=== PATIENT | male | born 1980 | race Caucasian/White ===

== ENCOUNTER 2024-09-27 14:27 | Inpatient (IN) | payer MEDICAID, OTHER ==
[~2024-09-27] VITALS: Ht 177.8 cm; Wt 93.5 kg
[2024-09-27] MEDS: SODIUM CHLORIDE 0.9% 1,000 ML IV ONE ×2 (18:00→19:30)
--- NOTE | 2024-09-27 18:46 | ED.PDOC ---
Psychiatric HPI Comments HPI: Poor Historian. 43-year-old male brought in by ambulance Patient is on Suboxone last intake was four days ago. Patient is on gabapentin Initial Vital Signs: Temp : BP: HR: RR: SpO2: Past Medcial History: Past Surgical History: REVIEW OF SYSTEMS: CONSTITUTIONAL: Denies acute: fever, diaphoresis, chills, generalized weakness. HEAD: Denies acute: headache, photophobia Eyes: Denies acute: Double vision, vision loss, eye pain, eye discharge. EARS: Denies acute: tinnitus, hearing loss, ear discharge, ear pain, THROAT: Denies acute: sore throat, swelling, difficulty swallowing , pain with swallowing, change in voice. NECK: Denies acute: neck pain, neck swelling, stiff neck. HEART: Denies acute : chest pain, palpitations, LUNGS: Denies acute: SOB, wheezing, cough, hemoptysis ABDOMEN: Denies acute: abdominal pain, Nausea, Vomiting, diarrhea, melena , hematemesis, hematochezia SKIN: Denies acute: rash, redness, lesions, itchiness. EXTREMITIES: Denies acute: calf pain, numbness, tingling, weakness, denies pain in extremity. Denies acute: Low back pain. Neuro: Denies acute: focal neurological deficit, motor or sensory focal neurological deficit, tremors, seizure like activity, confusion, dizziness, change in mental status, loss of bowel or bladder function, cauda equina like symptoms. : Denies acute: dysuria, hematuria, flank pain, increase in urinary frequency. PSYCH: Denies acute: hallucination, suicidal ideation, homicidal ideation. PHYSICAL EXAM: General: no acute distress, awake and alert. Head: normocephalic, atraumatic. Neck: supple, trachea is midline, no swelling. Throat: Normal phonation. Eyes:, no erythema, no purulent discharge, no proptosis, no icterus. Heart: regular rate, regular rhythm, no significant murmur appreciated. Lungs: no apparent respiratory distress, Able to speak in full sentences. No wheezing, no rhonchi, no crackles. No stridors Clear to auscultation bilaterally. Abdomen: non tender to palpation, non distended, soft, no guarding, no rebound, + bowel sounds. Neuro: Awake, Alert, oriented to name, self, situation, follows commands GCS=15. Speech is sporadic, Skin: no petechia, no purpura, no cyanosis, non-pale, not jaundice. Lower extremities: --no - Pitting edema no deformity, no focal swelling, no calf TTP. Makes eye contact. Unable to stay focused with the his answer, tangential moves all four extremities. Face: no apparent facial droop. Ambulating in the ED independently. Chief Complaint: Mental Health Time Seen by MD: 17:46 Primary Care Provider: UNKNOWN Information Source: Patient Mode of Arrival: EMS Past Medical History PAST MEDICAL HISTORY: Denies Surgical History: Denies all surgeries Family History Family History: Unknown Social History Smoker: Non-Smoker Alcohol: Occasionally Drugs: Other Lives In: Homeless Was a procedure done? Was a procedure done?: No Psych Differential Dx Psych. Differential Dx: Anxiety, Depression X-Ray, Labs, Meds, VS Vital Signs Date Time Temp Pulse Resp B/P (MAP) Pulse Ox O2 Delivery O2 Flow Rate FiO2 09/27/24 14:35 98.7 115 22 147/69 (95) 94 Lab Test 09/27/24 18:36 Range/Units White Blood Count 14.6 H 4.4-10.8 10^3/uL Red Blood Count 4.47 L 4.5-5.90 10^6/uL Hemoglobin 12.7 L 13.5-17.5 g/dL Hematocrit 38.0 L 41.0-53.0 % Mean Corpuscular Volume 85.1 80.0-100.0 fL Mean Corpuscular Hemoglobin 28.4 28.0-32.0 pg Mean Corpuscular Hemoglobin Concent 33.4 32.0-36.0 g/dL Red Cell Distribution Width 14.2 11.8-14.3 % Platelet Count 422 140-450 10^3/uL Mean Platelet Volume 6.7 L 6.9-10.8 fL Neutrophils (%) (Auto) 73.4 37.0-80.0 % Lymphocytes (%) (Auto) 13.4 10.0-50.0 % Monocytes (%) (Auto) 13.0 H 0.0-12.0 % Eosinophils (%) (Auto) 0.1 0.0-7.0 % Basophils (%) (Auto) 0.1 0.0-2.0 % Neutrophils # (Auto) 10.7 H 1.6-8.6 10 ^3/uL Lymphocytes # (Auto) 2.0 0.4-5.4 10 ^3/uL Monocytes # (Auto) 1.9 H 0-1.3 10 ^3/uL Eosinophils # (Auto) 0 0-0.8 10 ^3/uL Basophils # (Auto) 0 0-0.2 10 ^3/uL Nucleated Red Blood Cells 0.0 % Sodium Level 132 L 136-145 mmol/L Potassium Level 4.0 3.5-5.1 mmol/L Chloride Level 96 L 98-107 mmol/L Carbon Dioxide Level 22 20-31 mmol/L Anion Gap 14 5-15 Blood Urea Nitrogen 36 H 9-23 mg/dL Creatinine 1.17 0.700-1.30 mg/dL Glomerular Filtration Rate Calc 80 >90 mL/min BUN/Creatinine Ratio 30.8 H 10.0-20.0 Serum Glucose 67 L 74-106 mg/dL Lactic Acid Level 1.1 0.4-2.0 mmol/L Calcium Level 10.3 8.7-10.4 mg/dL Magnesium Level 2.4 1.6-2.6 mg/dL Total Bilirubin 1.8 H 0.2-1.0 mg/dL Aspartate Amino Transferase (AST) 88 H 13-40 U/L Alanine Aminotransferase (ALT) 37 7-40 U/L Alkaline Phosphatase 130 H 46-116 U/L Creatine Kinase > 1300 H 46-171 U/L Troponin I High Sensitivity 14 </=54 ng/L Total Protein 8.4 H 5.7-8.2 g/dL Albumin 5.1 H 3.2-4.8 g/dL Salicylates Level < 3.0 -30 mg/dL Acetaminophen Level < 2.0 L 10.0-20.0 UG/ML Plasma/Serum Blood Alcohol 5.1 <10 mg/dL [address] [address] Ph: [phone] DIAGNOSTIC IMAGING Diagnostic Imaging Report : [id number] Signed PATIENT: SAM SHIN ACCT: [id number] UNIT: [id number] : 1980 LOC: ER ROOM / BED: / AGE / SEX: 43 / M ADM STATUS: REG ER SERVICE [id number] ORDERING PHYSICIAN: BRYANT CARDOSO DO PROCEDURE(s): CXRP - CHEST PORTABLE REASON: mental health ORDER NUMBER(s): [id number], ACCESSION NUMBER(s): [id number] CHEST RADIOGRAPH Indication: mental health Technique: Single frontal view of the chest was obtained Comparison: None FINDINGS: Lines and Tubes: None Lungs: Clear Pleura: No effusion. No pneumothorax. Cardiomediastinal contours: Unremarkable Bones: Unremarkable IMPRESSION: 1. Clear lungs. ATED BY: FER GANDARA DO DICTATED DATE/TIME: 09/27/241934 SIGNED BY: FER GANDARA DO SIGNED DATE/TIME: 09/27/241934 CC: Time of 1ST Reevaluation: 18:26 Reevaluation 1ST: Unchanged Additional Information MDM LORAZEPAM 2MG, 2L NS Departure 1 Departure Time of Disposition: 19:24 Impression: Primary Impression: Rhabdomyolysis Additional Impression: Need for psychiatric clinical nurse specialist consultation Disposition: ADMITTED INPATIENT Admit to: [facility] Condition: Guarded Additional Instructions: [place] [address] Ph: [phone] DIAGNOSTIC IMAGING Diagnostic Imaging Report : [id number] Signed PATIENT: SAM SHIN ACCT: [id number] UNIT: [id number] : 1980 LOC: ER ROOM / BED: / AGE / SEX: 43 / M ADM STATUS: REG ER SERVICE 1746 ORDERING PHYSICIAN: BRYANT CARDOSO DO PROCEDURE(s): CXRP - CHEST PORTABLE REASON: mental health ORDER NUMBER(s): [id number], ACCESSION NUMBER(s): [id number] CHEST RADIOGRAPH Indication: mental health Technique: Single frontal view of the chest was obtained Comparison: None FINDINGS: Lines and Tubes: None Lungs: Clear Pleura: No effusion. No pneumothorax. Cardiomediastinal contours: Unremarkable Bones: Unremarkable IMPRESSION: 1. Clear lungs. ATED BY: FER GANDARA DO DICTATED DATE/TIME: 09/27/241934 SIGNED BY: FER GANDARA DO SIGNED DATE/TIME: 09/27/241934 CC: Discharged With: Self I personally scribed for BRYANT CARDOSO DO ([email or web address]) on 09/27/24 at 19:58. Electronically submitted by Constance Smith ([email or web address]). I personally scribed for JANAEBRYANT KELLEY DO ([email or web address]) on 09/27/24 at 20:47. Electronically submitted by Constance Smith ([email or web address]). I personally scribed for BRYANT CARDOSO DO ([email or web address]) on 09/27/24 at 20:52. Electronically submitted by Constance Smith ([email or web address]). I personally scribed for BRYANT CARDOSO DO ([email or web address]) on 09/27/24 at 21:33. Electronically submitted by Constance Smith ([email or web address]). I personally scribed for BRYANT CARDOSO DO ([email or web address]) on 09/27/24 at 21:33. Electronically submitted by Constance Smith ([email or web address]). BRYANT CARDOSO DO Sep 27, 2024 18:46
[2024-09-27 18:51] LABS: Basophils # (auto) 0 10 ^3/uL (0-0.2); Basophils % (auto) 0.1 % (0.0-2.0); Eosinophils # (auto) 0 10 ^3/uL (0-0.8); Eosinophils % (auto) 0.1 % (0.0-7.0); Hemoglobin 12.7 g/dL (13.5-17.5); Lymphocytes % (auto) 13.4 % (10.0-50.0); Mean Corpuscular Hemoglobin 28.4 pg (28.0-32.0); Mean Corpuscular Hgb Conc. 33.4 g/dL (32.0-36.0); Mean Corpuscular Volume 85.1 fL (80.0-100.0); Monocytes # (auto) 1.9 10 ^3/uL (0-1.3); Neutrophils # (auto) 10.7 10 ^3/uL (1.6-8.6); Neutrophils % (auto) 73.4 % (37.0-80.0); Platelet Count (auto) 422 10^3/uL (140-450); Red Blood Cells 4.47 10^6/uL (4.5-5.90); Red Cell Distribution Width 14.2 % (11.8-14.3); White Blood Cell 14.6 10^3/uL (4.4-10.8)
[2024-09-27 19:08] LABS: Alanine Aminotransferase 37 U/L (7-40); Anion Gap 14 (5-15); BUN/Creatinine Ratio 30.8 (10.0-20.0); Blood Alcohol 5.1 mg/dL (<10); Calcium 10.3 mg/dL (8.7-10.4); Carbon Dioxide 22 mmol/L (20-31); Magnesium 2.4 mg/dL (1.6-2.6)
[2024-09-27 19:09] LABS: Albumin 5.1 g/dL (3.2-4.8); Alkaline Phosphatase 130 U/L (46-116); Aspartate Aminotransferase 88 U/L (13-40); Bilirubin, Total 1.8 mg/dL (0.2-1.0); Blood Urea Nitrogen 36 mg/dL (9-23); Chloride 96 mmol/L (98-107); Creatine Kinase IFCC > 1300 U/L (46-171); Glucose 67 mg/dL (74-106); Sodium 132 mmol/L (136-145); Total Protein 8.4 g/dL (5.7-8.2)
[2024-09-27] MEDS: LORazepam 2MG/ML-1ML VIAL IV ONE (19:30)
--- NOTE | 2024-09-27 19:37 | DVH ---
CHEST RADIOGRAPH Indication: mental health Technique: Single frontal view of the chest was obtained Comparison: None FINDINGS: Lines and Tubes: None Lungs: Clear Pleura: No effusion. No pneumothorax. Cardiomediastinal contours: Unremarkable Bones: Unremarkable IMPRESSION: 1. Clear lungs.
[2024-09-27 19:48] LABS: Acetaminophen < 2.0 UG/ML (10.0-20.0); Salicylate < 3.0 mg/dL (-30)
--- NOTE | 2024-09-27 21:31 | DVHHPRES ---
History of Present Illness Resident Creating Document: YESSY DAMIAN RESIDENT History of Present Illness Patient is 43-year-old male with no known medical history came to hospital with seeking mental health given is anxious, feeling of killing himself and not eating and drinking enough for last 4-5 days. Patient is poor historian not able to provide proper medical history including past medical history, current medication, any previous psychiatric condition. In emergency department tele psych evaluation consultation has been ordered, IV fluid and Ativan has been ordered. Given abnormal lab findings included elevated creatinine, clinical signs of dehydration patient will be admitted to the hospital for further evaluation and management. Past Medical History Not able to obtain Past Surgical History: None Family History: None Past Social History Not able to obtain. Review of Systems Review of Systems Patient complaining of being agitated, anxious and complaining of killing himself. Constitutional: No: Fever, Chills, Sweats, Weakness, Malaise, Other Eyes: No: Pain, Vision change, Conjunctivae inflammation, Eyelid inflammation, Other, Redness ENT: No: Ear pain, Ear discharge, Nose pain, Nose discharge, Nose congestion, Mouth pain, Mouth swelling, Throat pain, Throat swelling, Other Respiratory: No: Cough, Dry, Shortness of breath, SOB with excertion, Wheezing, Hemoptysis, Pleuritic Pain, Sputum, Wheezing, Other Cardiovascular: No: Chest Pain, Palpitations, Orthopnea, Paroxysmal Noc. Dyspnea, Edema, Lt Headedness, Other Gastrointestinal: No: Nausea, Vomiting, Abdominal Pain, Diarrhea, Constipation, Melena, Hematochezia, Other Genitourinary: No Dysuria, No Frequency, No Incontinence, No Hematuria, No Retention, No Other Musculoskeletal: No: other, neck pain, shoulder pain, arm pain, back pain, hand pain, leg pain, foot pain Skin: No: Rash, Lesions, Jaundice, Bruising, Other Neurological: Change in speech Allergies: Coded Allergies: NO KNOWN ALLERGIES (Unverified , 09/27/24) Medications Current Medications Medications Dose Ordered Sig/Barbara Route Start Time Stop Time Status Last Admin Dose Admin Sodium Chloride 1,000 ml @ 100 mls/hr Q10H IV 09/27/24 21:30 UNV Exam Vital Signs Vital Signs Date Time Temp Pulse Resp B/P (MAP) Pulse Ox O2 Delivery O2 Flow Rate FiO2 09/27/24 14:35 98.7 115 22 147/69 (95) 94 General Appearance: Alert, Oriented X3 HEENT: PERRLA Respiratory: Clear to auscultation, Normal air movement Cardiovascular: Regular rate, Normal S1 Abdominal: Normal bowel sounds, Soft, No tenderness Extremities: No clubbing, No cyanosis, No edema Skin: No rashes, No breakdown, No significant lesion Neuro: Normal gait, Normal speech Psych/Mental Status: Other (Patient is anxious, speaking very fast) Labs/Xrays Labs Test 09/27/24 18:36 Range/Units White Blood Count 14.6 H 4.4-10.8 10^3/uL Red Blood Count 4.47 L 4.5-5.90 10^6/uL Hemoglobin 12.7 L 13.5-17.5 g/dL Hematocrit 38.0 L 41.0-53.0 % Mean Corpuscular Volume 85.1 80.0-100.0 fL Mean Corpuscular Hemoglobin 28.4 28.0-32.0 pg Mean Corpuscular Hemoglobin Concent 33.4 32.0-36.0 g/dL Red Cell Distribution Width 14.2 11.8-14.3 % Platelet Count 422 140-450 10^3/uL Mean Platelet Volume 6.7 L 6.9-10.8 fL Neutrophils (%) (Auto) 73.4 37.0-80.0 % Lymphocytes (%) (Auto) 13.4 10.0-50.0 % Monocytes (%) (Auto) 13.0 H 0.0-12.0 % Eosinophils (%) (Auto) 0.1 0.0-7.0 % Basophils (%) (Auto) 0.1 0.0-2.0 % Neutrophils # (Auto) 10.7 H 1.6-8.6 10 ^3/uL Lymphocytes # (Auto) 2.0 0.4-5.4 10 ^3/uL Monocytes # (Auto) 1.9 H 0-1.3 10 ^3/uL Eosinophils # (Auto) 0 0-0.8 10 ^3/uL Basophils # (Auto) 0 0-0.2 10 ^3/uL Nucleated Red Blood Cells 0.0 % Sodium Level 132 L 136-145 mmol/L Potassium Level 4.0 3.5-5.1 mmol/L Chloride Level 96 L 98-107 mmol/L Carbon Dioxide Level 22 20-31 mmol/L Anion Gap 14 5-15 Blood Urea Nitrogen 36 H 9-23 mg/dL Creatinine 1.17 0.700-1.30 mg/dL Glomerular Filtration Rate Calc 80 >90 mL/min BUN/Creatinine Ratio 30.8 H 10.0-20.0 Serum Glucose 67 L 74-106 mg/dL Lactic Acid Level 1.1 0.4-2.0 mmol/L Calcium Level 10.3 8.7-10.4 mg/dL Magnesium Level 2.4 1.6-2.6 mg/dL Total Bilirubin 1.8 H 0.2-1.0 mg/dL Aspartate Amino Transferase (AST) 88 H 13-40 U/L Alanine Aminotransferase (ALT) 37 7-40 U/L Alkaline Phosphatase 130 H 46-116 U/L Creatine Kinase > 1300 H 46-171 U/L Troponin I High Sensitivity 14 </=54 ng/L Total Protein 8.4 H 5.7-8.2 g/dL Albumin 5.1 H 3.2-4.8 g/dL Salicylates Level < 3.0 -30 mg/dL Acetaminophen Level < 2.0 L 10.0-20.0 UG/ML Plasma/Serum Blood Alcohol 5.1 <10 mg/dL Assessment/Plan Assessment/Plan Rhabdomyolysis Severe dehydration Suicidal ideation Likely depression, need psych evaluation ? Drug use Plan/recommendation -hydration with IV fluids -pending psych evaluation -repeat CBC and CMP given elevated creatinine kinase, likely due to severe dehydration. -IV lorazepam 1 mg q.6 p.r.n. for severe anxiety. Goals of care discussed greater than 22 minutes, full code. Plan discussed with Dr. Hernandez. Plan discussed with: Patient, Other (RN) My Orders Orders - YESSY DAMIAN Procedure Category Date Status Time Admit ADMIT 09/27/24 Transmitted 21:22 Sodium Chloride 0.9% PHA 09/27/24 Logged 21:30 Drug Screen LAB 09/27/24 Transmitted 21:26 Date of Service: Sep 27, 2024 Billing Provider: FIDEL HERNANDEZ MD Common Visit Codes: [id number] INP/OBS CARE (HIGH) YESSY DAMIAN RESIDENT Sep 27, 2024 21:31 FIDEL HERNANDEZ MD Sep 30, 2024 20:00
[2024-09-27 23:30] VITALS: BP 119/76; PULSE 71; RESP 18; TEMP 97.6; O2SAT 92
[2024-09-28] VITALS (7 sets, daily range): BP systolic 113–142; BP diastolic 54–81; PULSE 78–103; RESP 18–21; TEMP 97.4–98.5; O2SAT 94–98
[2024-09-28] MEDS: SODIUM CHLORIDE 0.9% 1,000 ML IV SCH ×2 (02:00→23:55)
[2024-09-28 04:26] LABS: Urine Bacteria None Seen /hpf (None Seen)
[2024-09-28 04:41] LABS: Urine Blood Negative /uL (Negative); Urine Clarity Clear (Clear); Urine Color Light-Yellow (Yellow); Urine Protein, UAD TRACE (Negative); Urine Specific Gravity 1.027 (1.001-1.035); Urine Squamous Epithelial Cell None Seen /hpf (<5); Urine Urobilinogen Normal (Negative); Urine WBC <1 /hpf (0 - 3)
[2024-09-28 04:46] LABS: Amphetamine Screen, Urine Neg (NEGATIVE); Barbiturate Scree,Urine Neg (NEGATIVE); Benzodiazephine Screen, Urine Neg (NEGATIVE); Cannabinoid Screen, Urine Pos (NEGATIVE); Cocaine Screen, Urine Neg (NEGATIVE); Opiate Scree,Urine Neg (NEGATIVE); Phencyclidine Screen, Urine Neg (NEGATIVE)
--- NOTE | 2024-09-28 08:02 | DVH ---
INDICATION: elevated bilirubin TECHNIQUE: Multiple real-time sonographic images of the abdomen were obtained. COMPARISON: None FINDINGS: The liver is homogenous in echogenicity. The liver measures 15.4 cm. No intrahepatic bilia ry ductal dilatation is noted. The gallbladder wall measures 0.2 cm and is unremarkable. No gallstones or sludge is seen. The com mon duct measures 0.6 cm and is unremarkable. No pericholecystic fluid is noted. Negative sonographi c christianson's sign. The right kidney measures 10.6 cm. No hydronephrosis. The pancreas is not well visualized due to obscuration from bowel gas. The visualized portions of the IVC and aorta are grossly unremarkable. IMPRESSION: 1. Dilated common bile duct without filling defects. The gallbladder is unremarkable. MRI/ MRCP may be obtained for further evaluation. 2. Normal echotexture of the liver. 3. No right hydronephrosis.
[2024-09-28] MEDS ORDERED: BUPR8MIS SL (08:44)
[2024-09-28 09:50] LABS: Basophils # (auto) 0 10 ^3/uL (0-0.2); Basophils % (auto) 0.1 % (0.0-2.0); Eosinophils # (auto) 0 10 ^3/uL (0-0.8); Eosinophils % (auto) 0.4 % (0.0-7.0); Hematocrit 35.8 % (41.0-53.0); Hemoglobin 12.2 g/dL (13.5-17.5); Lymphocytes # (auto) 1.3 10 ^3/uL (0.4-5.4); Lymphocytes % (auto) 16.2 % (10.0-50.0); Mean Corpuscular Hgb Conc. 34.2 g/dL (32.0-36.0); Mean Corpuscular Volume 84.7 fL (80.0-100.0); Monocytes # (auto) 1.1 10 ^3/uL (0-1.3); Monocytes % (auto) 13.4 % (0.0-12.0); Neutrophils # (auto) 5.7 10 ^3/uL (1.6-8.6); Neutrophils % (auto) 69.9 % (37.0-80.0); Nucleated Red Blood Cells % 0.2 %; Platelet Count (auto) 366 10^3/uL (140-450); Red Blood Cells 4.23 10^6/uL (4.5-5.90); Red Cell Distribution Width 13.7 % (11.8-14.3); White Blood Cell 8.1 10^3/uL (4.4-10.8)
[2024-09-28 10:06] LABS: Chloride 102 mmol/L (98-107); Sodium 137 mmol/L (136-145)
[2024-09-28 10:07] LABS: Anion Gap 9 (5-15); Calcium 9.5 mg/dL (8.7-10.4); Carbon Dioxide 26 mmol/L (20-31)
[2024-09-28 10:12] LABS: BUN/Creatinine Ratio 23.7 (10.0-20.0); Blood Urea Nitrogen 22 mg/dL (9-23)
[2024-09-28 10:21] LABS: Glucose 123 mg/dL (74-106)
[2024-09-28 10:57] LABS: Creatine Kinase IFCC 1527 U/L (46-171)
[2024-09-28] MEDS: NICOTINE 21MG/24 HR TOPICAL PATCH TD SCH (12:41)
[2024-09-28] MEDS ORDERED: SODIUM CHLORIDE 0.9% 1,000 ML IV SCH (14:00)
--- NOTE | 2024-09-28 14:15 | DVHINCON2 ---
Date of Service if different f: Sep 28, 2024 Consultation (JOSE) Progress: Somewhat better Labs Laboratory Tests Test 09/27/24 18:36 09/28/24 02:46 09/28/24 04:10 09/28/24 09:30 Lactic Acid Level 1.1 mmol/L (0.4-2.0) Magnesium Level 2.4 mg/dL (1.6-2.6) Total Bilirubin 1.8 mg/dL (0.2-1.0) Aspartate Amino Transf (AST/SGOT) 88 U/L (13-40) Alanine Aminotransferase (ALT/SGPT) 37 U/L (7-40) Alkaline Phosphatase 130 U/L (46-116) Troponin I High Sensitivity 14 ng/L (</=54) Total Protein 8.4 g/dL (5.7-8.2) Albumin 5.1 g/dL (3.2-4.8) Salicylates Level < 3.0 mg/dL (-30) Acetaminophen Level < 2.0 UG/ML (10.0-20.0) Plasma/Serum Blood Alcohol 5.1 mg/dL (<10) Ammonia < 10 umol/L (11-32) Urine Color Light-yellow (Yellow) Urine Clarity Clear (Clear) Urine pH 6.0 (5.0-9.0) Urine Specific Luna 1.027 (1.001-1.035) Urine Protein Trace (Negative) Urine Ketones 3+ (Negative) Urine Blood Negative /uL (Negative) Urine Nitrite Negative (Negative) Urine Bilirubin Negative (Negative) Urine Urobilinogen Normal mg/dL (Negative) Urine Leukocyte Esterase Negative /uL (Negative) Urine RBC 1 /hpf (0 - 3) Urine WBC <1 /hpf (0 - 3) Urine Squamous Epithelial Cells None seen /hpf (<5) Urine Bacteria None seen /hpf (None Seen) Urine Glucose Normal mg/dL (Normal) Urine Opiates Screen Neg (NEGATIVE) Urine Fentanyl Screen Neg (NEGATIVE) Urine Barbiturates Screen Neg (NEGATIVE) Urine Phencyclidine Screen Neg (NEGATIVE) Urine Amphetamines Screen Neg (NEGATIVE) Urine Benzodiazepines Screen Neg (NEGATIVE) Urine Cocaine Screen Neg (NEGATIVE) Urine Cannabinoids Screen Pos (NEGATIVE) White Blood Count 8.1 10^3/uL (4.4-10.8) Red Blood Count 4.23 10^6/uL (4.5-5.90) Hemoglobin 12.2 g/dL (13.5-17.5) Hematocrit 35.8 % (41.0-53.0) Mean Corpuscular Volume 84.7 fL (80.0-100.0) Mean Corpuscular Hemoglobin 29.0 pg (28.0-32.0) Mean Corpuscular Hemoglobin Concent 34.2 g/dL (32.0-36.0) Red Cell Distribution Width 13.7 % (11.8-14.3) Platelet Count 366 10^3/uL (140-450) Mean Platelet Volume 6.5 fL (6.9-10.8) Neutrophils (%) (Auto) 69.9 % (37.0-80.0) Lymphocytes (%) (Auto) 16.2 % (10.0-50.0) Monocytes (%) (Auto) 13.4 % (0.0-12.0) Eosinophils (%) (Auto) 0.4 % (0.0-7.0) Basophils (%) (Auto) 0.1 % (0.0-2.0) Neutrophils # (Auto) 5.7 10 ^3/uL (1.6-8.6) Lymphocytes # (Auto) 1.3 10 ^3/uL (0.4-5.4) Monocytes # (Auto) 1.1 10 ^3/uL (0-1.3) Eosinophils # (Auto) 0 10 ^3/uL (0-0.8) Basophils # (Auto) 0 10 ^3/uL (0-0.2) Nucleated Red Blood Cells 0.2 % Sodium Level 137 mmol/L (136-145) Potassium Level 4.0 mmol/L (3.5-5.1) Chloride Level 102 mmol/L (98-107) Carbon Dioxide Level 26 mmol/L (20-31) Anion Gap 9 (5-15) Blood Urea Nitrogen 22 mg/dL (9-23) Creatinine 0.93 mg/dL (0.700-1.30) Glomerular Filtration Rate Calc 105 mL/min (>90) BUN/Creatinine Ratio 23.7 (10.0-20.0) Serum Glucose 123 mg/dL (74-106) Calcium Level 9.5 mg/dL (8.7-10.4) Creatine Kinase 1527 U/L (46-171) Appetite: Good Side effects of medications: No Appearance: Stated age, Groomed Psychomotor activity: WNL (fidgety d/t ADHD combined type.) Behavioral: Cooperative Eye contact: Appropriate Speech: WNL, Rapid Affect: Appropriate Mood: Euthymic Thought processes: Linear/Goal-directed Thought content: WNL Suicidal ideations: Absent Homicidal ideations: Absent Orientation: Person, Place, Time, Situation Memory intact: Recent Intellect: Average Abstractability: WNL Concentration: Adequate Attention: Adequate Judgement: WNL Insight: Good Vitals Vital Signs Date Time Temp Pulse Resp B/P (MAP) Pulse Ox O2 Delivery O2 Flow Rate FiO2 09/28/24 12:30 98.1 100 19 142/81 (101) 96 98.1 09/28/24 08:00 Room Air* 0 21 Current medications Current Medications Medications Dose Ordered Sig/Barbara Route Start Time Stop Time Status Last Admin Dose Admin Sodium Chloride 1,000 ml @ 100 mls/hr Q10H IV 09/27/24 21:30 09/28/24 02:00 100 MLS/HR Nicotine 1 patch DAILY TD 09/28/24 12:30 09/28/24 12:41 1 PATCH Diagnosis: Opioid use disorder in sustained remission. ADHD combined type. Plan : Based on the current presentation and evaluation, the pt does not appear to be a danger to self or others and seems to have great insight and good judgment into his addiction, recovery. Pt works as a BHT in a rehab facility as well, helping other people in early recovery. Pt takes rietalin and suboxone at home, is stable on the doses for years and is famliar with where to follow up and whom to see, etc. Currently the pt denies SI, HI or AVH and admits to feeling bored, eager to leave and return to his work/life. The risk of harm to self or others in this case seems to be low and the pt can safely discharge to community with own f/u for psych and addiction services when medically cleared. History of Present Illness Reason for Consult : Pt made SI statements when presenting to the ED. HPI : Pt moved here 6 yrs ago and got about 1+ yr of rehab for drug use. Then the pt's narrative starts to unravel. Regarding how he came to the hospital, the pt says that there were people at the sober living house where he was living. They had kinds of drugs with them and pt felt very triggered to use drugs again. But he didn't. Pt only used some cannabis and nothing else. Pt felt very hot and people were commenting on how he didn't look well and that's why they called 911 to get him to the hospital. Pt says that he is not suicidal and doesn't recall making suicidal statements. Pt felt that he just had a bad day yesterday and felt overwhelmed. Past Psychiatric History : Pt takes Ritalin 36 mg for decades for ADHD. Pt did not admit to inpatient psychiatry only had [facility] treatment. Past Medical History : Denies. Social History : Lives in sober living. Works at [employer] at [employer]. Assessment/Diagnosis/Plan Reviewed: Labs, Medications, Other KARINA COFFMAN MD Sep 28, 2024 14:15
[2024-09-28] MEDS: ONDANSETRON HCL 4 MG/2 ML VIAL IV PRN (15:58)
[2024-09-28] MEDS: BUPRENORPHINE -NALOXONE 8-2mg SL TAB SL ONE (16:25)
--- NOTE | 2024-09-28 17:00 | DVHPNRES ---
Progress Note Date Seen: Sep 28, 2024 Resident Creating Document: ALONZO GERMAN RESIDENT Medical Necessity Reason Pt with a Central, PICC or Fol: No Subjective Review of Systems pt seen and examined at bedside, mentions of no suicideal ideation patient talks very tangential, with rapid speech Objective vital signs Vital Sign Date Time Temp Pulse Resp B/P (MAP) Pulse Ox O2 Delivery O2 Flow Rate FiO2 09/28/24 16:33 97.4 98 21 113/70 (84) 98 97.4 09/28/24 08:00 Room Air* 0 21 Total Intake and Output 09/27/24 09/27/24 09/28/24 15:00 23:00 07:00 Intake Total 0 ml Output Total 900 ml Balance -900 ml medications Current Medications Medications Dose Ordered Sig/Barbara Route Start Time Stop Time Status Last Admin Dose Admin Nicotine 1 patch DAILY TD 09/28/24 12:30 09/28/24 12:41 1 PATCH Sodium Chloride 1,000 ml @ 200 mls/hr Q5H IV 09/28/24 14:00 Ondansetron HCl 4 mg Q4HPRN PRN IV 09/28/24 15:30 09/28/24 15:58 4 MG Buprenorphine HCl 1 tab DAILY SL 09/29/24 10:00 Examination Examination General Appearance: Alert, Oriented X3, Cooperative, No acute distress HEENT: EOMI Respiratory: Clear to auscultation, Normal air movement Cardiovascular: Regular rate, Normal S1, Normal S2 Abdominal: Normal bowel sounds Extremities: No cyanosis, No edema, Normal pulses, No tenderness/swelling Skin: No rashes, No breakdown Neuro: Normal tone, no motor or sensory deficit laboratory and microbiology Laboratory Tests 09/28/24 09:30 Test 09/28/24 09:30 Range/Units Serum Glucose 123 H 74-106 mg/dL Labs and/or images reviewed: Labs reviewed by me, Image(s) reviewed by me Problem List/Assessment/Plan Problem List/Assessment/Plan Assessment/plan Rhabdomyolysis in the setting of possible dehydration versus possible illicit drug overdose YOBANY; most likely vasomotor nephropathy in the setting of rhabdomyolysis Leukocytosis; sepsis iv fluids Avoid nephrotoxic agents monitor BMP, CK UDS Suicidal ideation telepsych consultation Likely depression, rule out Bipolar disease telepsych consultation UDS Anxiety -IV lorazepam 1 mg q.6 p.r.n. for severe anxiety. Opioid use disorder continue home meds Tobacco use disorder; vapes nicotine Counseled cessation for 18 Goals of care discussed for 20 minutes, full code. banking services advisor consulted for home safety evaluation Plan discussed with Dr. Younger Plan discussed with: Patient, Other My Orders My Orders Orders - ALONZO GERMAN RESIDENT Procedure Category Date Status Time Nicotine 21mg/24hr PHA 09/28/24 In Process (Nicoderm 21mg/24hr) 12:30 Sodium Chloride 0.9% PHA 09/28/24 In Process 14:00 * Photo Finisher CONS 09/28/24 Transmitted Consult Ondansetron Hcl PHA 09/28/24 In Process (Zofran) 15:30 Electrocardigram EKG 09/28/24 Logged 15:31 Buprenorphine PHA 09/29/24 In Process Hcl-Naloxone Hcl 10:00 Addendum Addendum Addendum I was physically present for the lara portions of the service provided to patient by THE RESIDENT. I have reviewed the documentation, discussed the case with resident and agree with the resident's documentation except as noted. Also the patient's clinical case was discussed with the patient's nurse. This medical document was created using an electronic medical record system with computerized dictation system. Although this document has been carefully reviewed, there might still be some phonetic and typographical errors. These areas are purely typographical due to imperfections of the software programs, and do not reflect any compromise in the patient's medical care. Late signature. Date of Service: Sep 28, 2024 Billing Provider: TRISTON YOUNGER MD Common Visit Codes: [id number] INP/OBS CARE(HIGH) Secondary Visit Codes: 91785-[id number] CHNG SMOKING >10MIN (18 minutes), 42368- ADVANCED CARE PLAN 30 MINUTES (20 minutes) ALONZO GERMAN RESIDENT Sep 28, 2024 17:00 TRISTON YOUNGER MD Sep 29, 2024 18:46
[2024-09-29 01:00] VITALS: BP 138/73; PULSE 87; RESP 18; TEMP 98.2; O2SAT 95
[2024-09-29 05:00] VITALS: BP 136/78; PULSE 80; RESP 18; TEMP 98; O2SAT 95
[2024-09-29 05:41] LABS: Basophils # (auto) 0 10 ^3/uL (0-0.2); Basophils % (auto) 0.3 % (0.0-2.0); Eosinophils # (auto) 0.1 10 ^3/uL (0-0.8); Eosinophils % (auto) 1.6 % (0.0-7.0); Hematocrit 36.5 % (41.0-53.0); Hemoglobin 12.2 g/dL (13.5-17.5); Lymphocytes # (auto) 1.3 10 ^3/uL (0.4-5.4); Lymphocytes % (auto) 22.7 % (10.0-50.0); Mean Corpuscular Hgb Conc. 33.6 g/dL (32.0-36.0); Mean Corpuscular Volume 86.4 fL (80.0-100.0); Monocytes # (auto) 0.8 10 ^3/uL (0-1.3); Monocytes % (auto) 13.6 % (0.0-12.0); Neutrophils # (auto) 3.6 10 ^3/uL (1.6-8.6); Neutrophils % (auto) 61.8 % (37.0-80.0); Platelet Count (auto) 323 10^3/uL (140-450); Red Blood Cells 4.22 10^6/uL (4.5-5.90); Red Cell Distribution Width 13.8 % (11.8-14.3); White Blood Cell 5.8 10^3/uL (4.4-10.8)
[2024-09-29 06:03] LABS: Calcium 9.3 mg/dL (8.7-10.4); Chloride 104 mmol/L (98-107); Potassium 3.7 mmol/L (3.5-5.1); Sodium 139 mmol/L (136-145)
[2024-09-29 06:04] LABS: Anion Gap 6 (5-15); Carbon Dioxide 29 mmol/L (20-31)
[2024-09-29 06:09] LABS: BUN/Creatinine Ratio 16.7 (10.0-20.0); Blood Urea Nitrogen 12 mg/dL (9-23); Magnesium 2.1 mg/dL (1.6-2.6)
[2024-09-29 06:24] LABS: Creatine Kinase IFCC 717 U/L (46-171); Glucose 107 mg/dL (74-106)
[2024-09-29 08:00] VITALS: PULSE 99; RESP 18; O2SAT 94
[2024-09-29 08:30] VITALS: BP 139/83; PULSE 107; RESP 16; TEMP 97.8; O2SAT 94
--- NOTE | 2024-09-29 08:35 | ECG ---
[facility] Test Date: 2024-09-28 Test Time: 15:45:24 Pat Name: SAM SHIN Department: Room: 0271 Gender: M Integration Consultant: OC : 1980 Requested By: ALONZO GERMAN Order Number: [id number] Reading MD: Measurements Intervals [place] Rate: 82 P: 35 WI: 174 QRS: 12 QRSD: 110 T: 26 QT: 382 QTc: 446 Interpretive Statements Sinus rhythm Artifact in lead(s) I,II,III,aVR,aVL,aVF,V1,V2,V3,V4,V5,V6 Please click the below link to view image of tracing.
[2024-09-29] MEDS ORDERED: NICOTINE 21MG/24 HR TOPICAL PATCH TD SCH (10:00)
[2024-09-29] MEDS ORDERED: BUPRENORPHINE -NALOXONE 8-2mg SL TAB SL SCH (10:00)
--- NOTE | 2024-09-29 11:10 | DVHDSRES ---
Discharge Summary Date of Admission Resident Creating Document: AMARILIS COFFMAN RESIDENT Sep 27, 2024 at 21:22 Date of Discharge: Sep 29, 2024 Admitting Diagnosis Suicidal thoughts with decreased oral intake Labs/Diagnostic Data: Laboratory Results Test 09/29/24 04:57 09/28/24 04:10 09/28/24 02:46 09/27/24 18:36 White Blood Count 5.8 10^3/uL (4.4-10.8) Red Blood Count 4.22 10^6/uL (4.5-5.90) Hemoglobin 12.2 g/dL (13.5-17.5) Hematocrit 36.5 % (41.0-53.0) Mean Corpuscular Volume 86.4 fL (80.0-100.0) Mean Corpuscular Hemoglobin 29.0 pg (28.0-32.0) Mean Corpuscular Hemoglobin Concent 33.6 g/dL (32.0-36.0) Red Cell Distribution Width 13.8 % (11.8-14.3) Platelet Count 323 10^3/uL (140-450) Mean Platelet Volume 6.7 fL (6.9-10.8) Neutrophils (%) (Auto) 61.8 % (37.0-80.0) Lymphocytes (%) (Auto) 22.7 % (10.0-50.0) Monocytes (%) (Auto) 13.6 % (0.0-12.0) Eosinophils (%) (Auto) 1.6 % (0.0-7.0) Basophils (%) (Auto) 0.3 % (0.0-2.0) Neutrophils # (Auto) 3.6 10 ^3/uL (1.6-8.6) Lymphocytes # (Auto) 1.3 10 ^3/uL (0.4-5.4) Monocytes # (Auto) 0.8 10 ^3/uL (0-1.3) Eosinophils # (Auto) 0.1 10 ^3/uL (0-0.8) Basophils # (Auto) 0 10 ^3/uL (0-0.2) Nucleated Red Blood Cells 0.0 % Sodium Level 139 mmol/L (136-145) Potassium Level 3.7 mmol/L (3.5-5.1) Chloride Level 104 mmol/L (98-107) Carbon Dioxide Level 29 mmol/L (20-31) Anion Gap 6 (5-15) Blood Urea Nitrogen 12 mg/dL (9-23) Creatinine 0.72 mg/dL (0.700-1.30) Glomerular Filtration Rate Calc 117 mL/min (>90) BUN/Creatinine Ratio 16.7 (10.0-20.0) Serum Glucose 107 mg/dL (74-106) Calcium Level 9.3 mg/dL (8.7-10.4) Magnesium Level 2.1 mg/dL (1.6-2.6) Creatine Kinase 717 U/L (46-171) Urine Color Light-yellow (Yellow) Urine Clarity Clear (Clear) Urine pH 6.0 (5.0-9.0) Urine Specific [place] 1.027 (1.001-1.035) Urine Protein Trace (Negative) Urine Ketones 3+ (Negative) Urine Blood Negative /uL (Negative) Urine Nitrite Negative (Negative) Urine Bilirubin Negative (Negative) Urine Urobilinogen Normal mg/dL (Negative) Urine Leukocyte Esterase Negative /uL (Negative) Urine RBC 1 /hpf (0 - 3) Urine WBC <1 /hpf (0 - 3) Urine Squamous Epithelial Cells None seen /hpf (<5) Urine Bacteria None seen /hpf (None Seen) Urine Glucose Normal mg/dL (Normal) Urine Opiates Screen Neg (NEGATIVE) Urine Fentanyl Screen Neg (NEGATIVE) Urine Barbiturates Screen Neg (NEGATIVE) Urine Phencyclidine Screen Neg (NEGATIVE) Urine Amphetamines Screen Neg (NEGATIVE) Urine Benzodiazepines Screen Neg (NEGATIVE) Urine Cocaine Screen Neg (NEGATIVE) Urine Cannabinoids Screen Pos (NEGATIVE) Ammonia < 10 umol/L (11-32) Lactic Acid Level 1.1 mmol/L (0.4-2.0) Total Bilirubin 1.8 mg/dL (0.2-1.0) Aspartate Amino Transferase (AST) 88 U/L (13-40) Alanine Aminotransferase (ALT) 37 U/L (7-40) Alkaline Phosphatase 130 U/L (46-116) Troponin I High Sensitivity 14 ng/L (</=54) Total Protein 8.4 g/dL (5.7-8.2) Albumin 5.1 g/dL (3.2-4.8) Salicylates Level < 3.0 mg/dL (-30) Acetaminophen Level < 2.0 UG/ML (10.0-20.0) Plasma/Serum Blood Alcohol 5.1 mg/dL (<10) Other Laboratory Tests 09/29/24 04:57 Brief Hx & Hospital Course: Patient is 43-year-old male with no known medical history came to hospital with seeking mental health support, along with anxiety, thoughts of killing himself and not eating and drinking enough for last 4-5 days. Patient is poor historian not able to provide proper medical history including past medical history, current medication, any previous psychiatric condition. In emergency department tele psych evaluation consultation was ordered, IV fluid and Ativan has been ordered. Given abnormal lab findings included elevated creatinine, clinical signs of dehydration patient was admitted to the hospital for further evaluation and management. Hospital course: Psychiatric evaluation was ordered for the patient according to which the patient did not appear to be danger to self or others and seemed to have good insight and good judgment into his addiction, recovery. Patient was noted to have a creatinine kinase >1300, 1527 and was subsequently started on IV fluid 200 cc/hour. For anxiety, patient was continued on IV lorazepam 1 mg q.6 hours as needed for severe anxiety. customer technical services manager were also consulted for home safety evaluation, however, patient eloped before further evaluation and management could be completed. The patient eloped so physical exam was not done. Discussed with Dr. Younger. Condition at Discharge: Undetermined (Eloped) Final Diagnosis/Problems List Rhabdomyolysis Hyponatremia, improved Transaminitis possible liver disease? Depression, could not rule out bipolar disease Suicidal ideation Opioid use disorder Anxiety Discharge Disposition: Eloped Discharge Instruct/Medications Diet: See Comment Diet comment: Eloped Activity: See Comment Activity comment: Eloped Follow Up/Referral: Eloped Medications: Eloped Discharge Statement: Patient eloped. ASSESSMENT ASSESSMENT Assessment Addendum Addendum Addendum I was physically present for the lara portions of the service provided to patient by THE RESIDENT. I have reviewed the documentation, discussed the case with resident and agree with the resident's documentation except as noted. Also the patient's clinical case was discussed with the patient's nurse. This medical document was created using an electronic medical record system with computerized dictation system. Although this document has been carefully reviewed, there might still be some phonetic and typographical errors. These areas are purely typographical due to imperfections of the software programs, and do not reflect any compromise in the patient's medical care. Late signature. Date of Service: Sep 29, 2024 Billing Provider: TRISTON YOUNGER MD Common Visit Codes: 53981-TCI/OBS DISCH DAY >30min AMARILIS COFFMAN RESIDENT Sep 29, 2024 11:10 TRISTON YOUNGER MD Sep 29, 2024 18:51
[2024-09-30] MEDS ORDERED: BUPR8MIS SL (13:12)
== END 2024-09-29 09:15 | disposition left against medical advice (07) | DRG 351 ==
LOC: ER 14:27 → EDBD 14:27 → OVERFLOW 21:22 → WEST WING 23:22
PROVIDERS: ADMIT Student in an Organized Health Care Education/Training Program; ATTEND Emergency Medicine
DX: M62.82 Rhabdomyolysis (principal); R45.851 Suicidal ideations; E87.1 Hypo-osmolality and hyponatremia; E86.0 Dehydration; Z53.29 Procedure and treatment not carried out because of patient's decision for other reasons; F11.11 Opioid abuse, in remission; F90.2 Attention-deficit hyperactivity disorder, combined type; R74.01 Elevation of levels of liver transaminase levels; K76.9 Liver disease, unspecified; F31.9 Bipolar disorder, unspecified; F41.9 Anxiety disorder, unspecified; Z59.00 Homelessness unspecified; Z79.899 Other long term (current) drug therapy
CPT/HCPCS: 36415; 71045; 76705; 80048; 80053; 80307; 80320; 80329; 81001; 82140; 82550; 83605; 83735; 84484; 85025; 93005; G0378; J2405

== ENCOUNTER 2024-09-29 10:44 | Inpatient (IN) | payer MEDICAID ==
[~2024-09-29] VITALS: Ht 185.4 cm; Wt 93.1 kg
[~2024-09-29 10:44] MED LIST: BUPR8MIS SL
--- NOTE | 2024-09-29 11:12 | ED.PDOC ---
SOB-HPI HPI Comments 43 y.o male presents to the ED via EMS for a chief complaint of SOB associated with a productive cough that started 3-4 days ago. Patient was seen at this ED yesterday, was discharged a couple hours ago with unremarkable examination but states symptoms have no improved. EMS reports patient was tachycardiac art 140- 160, was given IV fluid which brought heart rate down to 109. Patient denies any chest pain, nausea, vomiting, fever chills, or phlegm sputum. Patient reports the use of tobacco via Vaping device and marijuana. Chief Complaint: Shortness of Breath Time Seen by MD: 10:58 Primary Care Provider: UNKNOWN Reviewed notes: Nurses Notes, Bulk Station Agent Notes, Medications, Allergies Information Source: Patient, Emergency Med Personnel Mode of Arrival: EMS Severity: Moderate Timing: Days Duration: Since onset Context: At Rest PE Risk Factors: None Prehospital treatment: 12 Lead EKG, Cnc Machine Operator, IVF Associated Signs and Symptoms: Cough If cough with SOB: Productive Past Medical History PAST MEDICAL HISTORY: Depression, Seizures Past Medical History (Other): neuropathy Surgical History (Other): back Family History Family History: Unknown Social History Smoker: Other (Vape ) Alcohol: Occasionally Drugs: Marijuana Lives In: Homeless Constitutional: denies: chills, diaphoresis, fatigue, fever, malaise, sweats, weakness, others EENTM: denies: blurred vision, double vision, ear bleeding, ear discharge, ear drainage, ear pain, ear ringing, eye pain, eye redness, hearing loss, mouth pain, mouth swelling, nasal discharge, nose bleeding, nose congestion, nose pain, photophobia, tearing, throat pain, throat swelling, voice changes, others Respiratory: reports: cough, SOB at rest, shortness of breath, SOB with excertion; denies: hemoptysis, orthopnea, stridor, wheezing, others Cardiovascular: denies: chest pain, dizzy spells, diaphoresis, Dyspnea on exertion, edema, irregular heart beat, left arm pain, lightheadedness, palpitations, PND, syncope, others Gastrointestinal: denies: abdomen distended, abdominal pain, blood streaked bowels, constipated, diarrhea, dysphagia, difficulty swallowing, hematemesis, melena, nausea, poor appetite, poor fluid intake, rectal bleeding, rectal pain, vomiting, others Genitourinary: denies: burning, dysuria, flank pain, frequency, hematuria, incontinence, penile discharge, penile sore, pain, testicle pain, testicle swelling, urgency, others Neurological: denies: dizziness, fainting, headache, left sided numbness, left sided weakness, numbness, paresthesia, pre-existing deficit, right sided numbness, right sided weakness, seizure, speech problems, tingling, tremors, weakness, others Musculoskeletal: denies: back pain, gout, joint pain, joint swelling, muscle pain, muscle stiffness, neck pain, others Integumetry: denies: bruises, change in color, change in hair/nails, dryness, laceration, lesions, lumps, rash, wounds, others Allergic/Immunocompromised: denies: Difficulty Healing, Frequent Infections, Hives, Itching, others Hematologic/Lymphatic: denies: anemia, blood clots, easy bleeding, easy bruising, swollen glands, others Endocrine: denies: excessive hunger, excessive sweating, excessive thirst, excessive urination, flushing, intolerance to cold, intolerance to heat, unexplained weight gain, unexplained weight loss, others Psychiatric: denies: anxiety, bipolar disorder, depression, hopeless, panic disorder, schizophrenia, sleepless, suicidal, others All Other Systems: Reviewed and Negative Physical Exam General Appearance: Moderate Distress HEENT: Normal ENT Inspection, Pharynx Normal, TMs Normal Neck: Full Range of Motion, Non-Tender, Normal, Normal Inspection Respiratory: Accessory Muscle Use, Chest Non-Tender, Decreased Breath Sounds, Respiratory Distress, Rhonchi, Wheezing Cardiovascular: No Edema, No JVD, No Murmur, No Gallop, Tachycardia Breast Exam: Deferred Gastrointestinal: No Organomegaly, Non Tender, No Pulsatile Mass, Normal Bowel Sounds, Soft Genitalia: Deferred Pelvic: Deferred Rectal: Deferred Extremities: No calf tenderness, Normal capillary refill, Normal inspection, Normal range of motion, Non-tender, No pedal edema Musculoskeletal : Apperance: Normal Neurologic: Alert, fire inspector II-XII nml as Tested, No Motor Deficits, Normal Affect, Normal Mood, No Sensory Deficits Cerebellar Function: Normal Reflexes: Normal Skin: Dry, Normal Color, Warm Lymphatic: No Adenopathy Was a procedure done? Was a procedure done?: No Differential Dx Differential Diagnosis: Asthma, Bronchitis, COPD, Hyperventilation, Pneumonia, Respiratory Distress, Pharyngitis, URI X-Ray, Labs, Meds, VS Vital Signs Date Time Temp Pulse Resp B/P (MAP) Pulse Ox O2 Delivery O2 Flow Rate FiO2 09/29/24 12:01 24 99 Room Air* 0 21 09/29/24 11:39 102 16 96 Room Air* 0 21 09/29/24 11:32 98.4 102 22 153/90 (111) 96 98.4 09/29/24 11:00 98.3 102 18 142/96 (111) 97 Lab Test 09/29/24 11:24 Range/Units White Blood Count 16.8 #H 4.4-10.8 10^3/uL Red Blood Count 4.21 L 4.5-5.90 10^6/uL Hemoglobin 11.7 L 13.5-17.5 g/dL Hematocrit 35.7 L 41.0-53.0 % Mean Corpuscular Volume 85.0 80.0-100.0 fL Mean Corpuscular Hemoglobin 27.8 L 28.0-32.0 pg Mean Corpuscular Hemoglobin Concent 32.7 32.0-36.0 g/dL Red Cell Distribution Width 13.9 11.8-14.3 % Platelet Count 399 140-450 10^3/uL Mean Platelet Volume 6.5 L 6.9-10.8 fL Neutrophils (%) (Auto) 88.6 H 37.0-80.0 % Lymphocytes (%) (Auto) 4.5 L 10.0-50.0 % Monocytes (%) (Auto) 6.7 0.0-12.0 % Eosinophils (%) (Auto) 0.0 0.0-7.0 % Basophils (%) (Auto) 0.2 0.0-2.0 % Neutrophils # (Auto) 14.8 H 1.6-8.6 10 ^3/uL Lymphocytes # (Auto) 0.8 0.4-5.4 10 ^3/uL Monocytes # (Auto) 1.1 0-1.3 10 ^3/uL Eosinophils # (Auto) 0 0-0.8 10 ^3/uL Basophils # (Auto) 0 0-0.2 10 ^3/uL Nucleated Red Blood Cells 0.0 % Sodium Level 135 L 136-145 mmol/L Potassium Level 3.8 3.5-5.1 mmol/L Chloride Level 101 98-107 mmol/L Carbon Dioxide Level 26 20-31 mmol/L Anion Gap 8 5-15 Blood Urea Nitrogen 17 9-23 mg/dL Creatinine 0.92 0.700-1.30 mg/dL Glomerular Filtration Rate Calc 107 >90 mL/min BUN/Creatinine Ratio 18.5 10.0-20.0 Serum Glucose 76 74-106 mg/dL Calcium Level 9.3 8.7-10.4 mg/dL B-Type Natriuretic Peptide 75.98 0-100 pg/mL Current Medications Medications (Trade) Dose Ordered Sig/Barbara Route Start Time Stop Time Status Last Admin Methylprednisolone Sodium Succinate (Solu Medrol) 125 mg ONCE ONCE IV 09/29/24 11:15 09/29/24 11:16 DC 09/29/24 11:35 Ipratropium [place] (Atrovent Medneb) 1 mg ONCE ONCE HHN 09/29/24 11:15 09/29/24 11:16 DC 09/29/24 12:00 Albuterol (Ventolin Medneb) 20 mg ONCE ONCE N 09/29/24 11:15 09/29/24 11:16 DC 09/29/24 12:00 The patient's CBC shows an elevated white blood cell count of 16.8 The rest of the CBC is within normal limits of the chemistry panel is within normal limits The patient was given breathing treatment of albuterol and Atrovent The patient was also given Solu-Medrol 125 mg IV push At this time, the patient is being admitted to the hospitalist The chest x-ray is negative At this time the patient has be admitted with a diagnosis of acute respiratory failure The patient understands and agrees with the management. Images Reviewed?: Images reviewed and evaluated by me Time of 1ST Reevaluation: 11:12 Reevaluation 1ST: Unchanged Patient Education/Counseling: Diagnosis, Treatment, Prognosis Family Education/Counseling: No Family Present Departure 1 Departure Time of Disposition: 13:58 Impression: Primary Impression: Acute respiratory failure Qualified Codes: J96.00 - Acute respiratory failure, unspecified whether with hypoxia or hypercapnia Disposition: ADMITTED INPATIENT Admit to: [facility] Condition: Fair Critical Care Note Critical Care Time?: No Stability Stability form required: Yes Unstable for transfer: Telemetry monitoring (Telemetry monitoring required), ED Physician Assesment (Clinical assesment) I personally scribed for ZAINAB CANTU MD ([email or web address]) on 09/29/24 at 11:12. Electronically submitted by Kusum Bowers ([email or web address]). ZAINAB CANTU MD Sep 29, 2024 11:12
[2024-09-29 11:32] LABS: Basophils # (auto) 0 10 ^3/uL (0-0.2); Basophils % (auto) 0.2 % (0.0-2.0); Eosinophils # (auto) 0 10 ^3/uL (0-0.8); Hematocrit 35.7 % (41.0-53.0); Hemoglobin 11.7 g/dL (13.5-17.5); Lymphocytes # (auto) 0.8 10 ^3/uL (0.4-5.4); Lymphocytes % (auto) 4.5 % (10.0-50.0); Mean Corpuscular Hemoglobin 27.8 pg (28.0-32.0); Mean Corpuscular Hgb Conc. 32.7 g/dL (32.0-36.0); Monocytes # (auto) 1.1 10 ^3/uL (0-1.3); Monocytes % (auto) 6.7 % (0.0-12.0); Neutrophils # (auto) 14.8 10 ^3/uL (1.6-8.6); Neutrophils % (auto) 88.6 % (37.0-80.0); Platelet Count (auto) 399 10^3/uL (140-450); Red Blood Cells 4.21 10^6/uL (4.5-5.90); Red Cell Distribution Width 13.9 % (11.8-14.3); White Blood Cell 16.8 10^3/uL (4.4-10.8)
[2024-09-29] MEDS: methylPREDNISolone SOD SUCC 125 MG/2 ML VL IV ONE (11:35)
[2024-09-29 11:39] VITALS: PULSE 102; RESP 16; O2SAT 96
[2024-09-29 11:56] LABS: Chloride 101 mmol/L (98-107); Potassium 3.8 mmol/L (3.5-5.1)
[2024-09-29 11:57] LABS: Anion Gap 8 (5-15); Carbon Dioxide 26 mmol/L (20-31)
[2024-09-29 11:58] LABS: Calcium 9.3 mg/dL (8.7-10.4)
[2024-09-29] MEDS: ALBUTEROL SULF 2.5 MG/0.5ML(0.5%) NEB SOLN HHN ONE (12:00)
[2024-09-29] MEDS: IPRATROPIUM BROM 0.5 MG/2.5ML INH SOL HHN ONE (12:00)
[2024-09-29 12:01] LABS: Sodium 135 mmol/L (136-145)
[2024-09-29 12:02] LABS: BUN/Creatinine Ratio 18.5 (10.0-20.0); Blood Urea Nitrogen 17 mg/dL (9-23); Glucose 76 mg/dL (74-106)
--- NOTE | 2024-09-29 12:17 | DVH ---
CHEST RADIOGRAPH Indication: sob Technique: Single frontal view of the chest was obtained COMPARISON: XY CHEST PORTABLE on DOS: 09/27/24 FINDINGS: Lines and Tubes: None Lungs: Clear Pleura: No effusion. No pneumothorax. Cardiomediastinal contours: Unremarkable Bones: Unremarkable IMPRESSION: 1. No acute disease.
[2024-09-29 23:30] VITALS: PULSE 102; RESP 20; O2SAT 96
--- NOTE | 2024-09-29 23:30 | DVHHPRES ---
History of Present Illness Resident Creating Document: YESSY DAMIAN RESIDENT History of Present Illness Patient is 43-year-old male with no known medical history came to the hospital after eloped on 09/29/2024 with a chief complaint of worsening cough, shortness of breath and mild fever. As per patient he went home from hospital, started having sudden onset of cough, shortness of breath and he was not able to breathe by himself. That is why patient came to the hospital. Shortness of breath is sudden onset, not associated with chest pain, no sputum production, constant dry cough, associated with flu-like symptoms including runny nose, sore throat and fever. Cough is dry, constant, not associated with sputum production. Patient denied any other symptoms including chest pain, sputum production, abdominal pain, motor weakness, sensory deficits, any other symptoms. At the time of evaluation, patient was in respiratory distress, laboratory findings evident with elevated white cell count, patient will be admitted to hospital for further evaluation and management. Past Medical History Opiate use disorder Anxiety Past Surgical History: None Family History: None Past Social History As per patient he smokes marijuana. Home medication:Pt takes Ritalin 36 mg for decades for ADHD. Patient takes Suboxone for opiate use disorder. Review of Systems Review of Systems Patient complaining of runny nose, sore throat, fever, cough, shortness of breath. Allergies: Coded Allergies: NO KNOWN ALLERGIES (Unverified , 09/27/24) Medications Current Medications Medications Dose Ordered Sig/Barbara Route Start Time Stop Time Status Last Admin Dose Admin Ceftriaxone Sodium 50 ml @ 100 mls/hr DAILY@09 IV 09/30/24 09:00 Azithromycin 250 ml @ 125 mls/hr DAILY IV 09/30/24 10:00 Albuterol 2.5 mg Q6HR NEB 09/30/24 00:00 Ipratropium [place] 0.5 mg Q6HR NEB 09/30/24 00:00 Sodium Chloride 1,000 ml @ 100 mls/hr Q10H IV 09/29/24 23:00 Exam Vital Signs Vital Signs Date Time Temp Pulse Resp B/P (MAP) Pulse Ox O2 Delivery O2 Flow Rate FiO2 09/29/24 12:01 24 99 Room Air* 0 21 09/29/24 11:39 102 09/29/24 11:32 98.4 153/90 (111) 98.4 Exam General Appearance: Cooperative. Well developed. Well nourished. NAD Head Exam: Normal inspection Neck Exam: Normal inspection. Non-tender. Normal alignment Pulmonary/Respiratory: Chest non-tender. Mild diminished air entry in bilateral lungs. Cardiovascular/Chest: Regular rate and rhythm. No murmurs. No JVD. Peripheral Pulses: 2+ Radial (R). 2+ Radial (L). 2+ Pedal (R). 2+ Pedal (L) Abdominal Exam: Normal bowel sounds. Soft. Nontender. No hepatospenomegaly. No masses Ankle Exam: Negative ankle edema Lower extremities: Negative lower extremity edema Neuro/Mental Status: A&O x4. Coherent Thoughts/Psych: Normal thought pattern. Appropriate mood and affect. Good judgement and insight Appearance: In no acute distress Skin Exam: Normal inspection. Normal color. Warm. Dry Labs/Xrays Labs Test 09/29/24 11:24 Range/Units White Blood Count 16.8 #H 4.4-10.8 10^3/uL Red Blood Count 4.21 L 4.5-5.90 10^6/uL Hemoglobin 11.7 L 13.5-17.5 g/dL Hematocrit 35.7 L 41.0-53.0 % Mean Corpuscular Volume 85.0 80.0-100.0 fL Mean Corpuscular Hemoglobin 27.8 L 28.0-32.0 pg Mean Corpuscular Hemoglobin Concent 32.7 32.0-36.0 g/dL Red Cell Distribution Width 13.9 11.8-14.3 % Platelet Count 399 140-450 10^3/uL Mean Platelet Volume 6.5 L 6.9-10.8 fL Neutrophils (%) (Auto) 88.6 H 37.0-80.0 % Lymphocytes (%) (Auto) 4.5 L 10.0-50.0 % Monocytes (%) (Auto) 6.7 0.0-12.0 % Eosinophils (%) (Auto) 0.0 0.0-7.0 % Basophils (%) (Auto) 0.2 0.0-2.0 % Neutrophils # (Auto) 14.8 H 1.6-8.6 10 ^3/uL Lymphocytes # (Auto) 0.8 0.4-5.4 10 ^3/uL Monocytes # (Auto) 1.1 0-1.3 10 ^3/uL Eosinophils # (Auto) 0 0-0.8 10 ^3/uL Basophils # (Auto) 0 0-0.2 10 ^3/uL Nucleated Red Blood Cells 0.0 % Sodium Level 135 L 136-145 mmol/L Potassium Level 3.8 3.5-5.1 mmol/L Chloride Level 101 98-107 mmol/L Carbon Dioxide Level 26 20-31 mmol/L Anion Gap 8 5-15 Blood Urea Nitrogen 17 9-23 mg/dL Creatinine 0.92 0.700-1.30 mg/dL Glomerular Filtration Rate Calc 107 >90 mL/min BUN/Creatinine Ratio 18.5 10.0-20.0 Serum Glucose 76 74-106 mg/dL Calcium Level 9.3 8.7-10.4 mg/dL B-Type Natriuretic Peptide 75.98 0-100 pg/mL Assessment/Plan Assessment/Plan Acute respiratory distress Possible acute viral syndrome Rhabdomyolysis Severe dehydration Opioid use disorder Anxiety Plan/recommendation -hydration with IV fluids -IV antibiotic with ceftriaxone and azithromycin. -repeat CBC and CMP given elevated creatinine kinase, likely due to severe dehydration. -breathing treatment with ipratropium bromide and albuterol. -given methylprednisolone 125 mg one time dose by ED physician. -IV lorazepam 1 mg q.6 p.r.n. for severe anxiety. Goals of care discussed greater than 22 minutes, full code. Plan discussed with Dr. Hernandez. Plan discussed with: Patient, Other My Orders Orders - YESSY DAMIAN RESIDENT Procedure Category Date Status Time Admit ADMIT 09/29/24 Transmitted 22:51 Ceftriaxone 1gm/50ml PHA 09/30/24 In Process D5w (Rocephin) 09:00 Azithromycin 500mg/ PHA 09/30/24 In Process 250ml (Zithromax 50 10:00 Azithromycin 500mg/ PHA 09/29/24 In Process 250ml (Zithromax 50 23:00 Albuterol Medneb PHA 09/30/24 In Process (Ventolin Medneb) 00:00 Ipratropium Medneb PHA 09/30/24 In Process (Atrovent Medneb) 00:00 Respiratory Culture YASH 09/29/24 Logged W/ Gs 22:51 Blood Culture YASH 09/29/24 Logged 22:51 Sodium Chloride 0.9% PHA 09/29/24 In Process 23:00 Drug Screen LAB 09/29/24 Logged 22:55 Urinalysis LAB 09/29/24 Logged 22:55 Date of Service: Sep 29, 2024 Billing Provider: FIDEL HERNANDEZ MD Common Visit Codes: [id number] INP/OBS CARE (HIGH) NATIYESSY RESIDENT Sep 29, 2024 23:30 FIDEL HERNANDEZ MD Sep 30, 2024 20:13
[2024-09-29 23:40] VITALS: PULSE 100; RESP 20; O2SAT 99
[2024-09-29] MEDS: AZITHROMYCIN 500MG/ 250ML 250 ML IV ONE (23:44)
[2024-09-29] MEDS: cefTRIAXone 1GM/50ML D5W 50 ML IV ONE (23:44)
[2024-09-29] MEDS: SODIUM CHLORIDE 0.9% 1,000 ML IV SCH (23:45)
[2024-09-30] VITALS (7 sets, daily range): BP systolic 138–150; BP diastolic 75–77; PULSE 97–110; RESP 18–20; TEMP 98–98.1; O2SAT 94–100
[2024-09-30] MEDS: ALBUTEROL SULF 2.5 MG/0.5ML(0.5%) NEB SOLN NEB SCH (00:16)
[2024-09-30] MEDS: IPRATROPIUM BROM 0.5 MG/2.5ML INH SOL NEB SCH (00:16)
[2024-09-30 01:38] LABS: COVID19 ANTIGEN SOFIA FIA NEGATIVE (NEGATIVE)
[2024-09-30 01:38] LABS: Rapid Influenza A Negative (Negative); Rapid Influenza B Negative (Negative)
[2024-09-30] MEDS: PANTOPRAZOLE 40 MG TAB PO SCH (06:31)
[2024-09-30] MEDS: cefTRIAXone 1GM/50ML D5W 50 ML IV SCH (09:04)
[2024-09-30] MEDS: AZITHROMYCIN 500MG/ 250ML 250 ML IV SCH (11:41)
[2024-09-30] MEDS ORDERED: BUPR8MIS SL (13:12)
--- NOTE | 2024-09-30 13:33 | DVHPNRES ---
Progress Note Date Seen: Sep 30, 2024 Resident Creating Document: AMARILIS COFFMAN RESIDENT Medical Necessity Reason Pt with a Central, PICC or Fol: No Subjective Review of Systems Patient is a 43-year-old male with past medical history of ADHD, hypertension who eloped from the hospital yesterday on 09/29/2024 when he came in due to suicidal ideation. Psych eval was completed for him and he was cleared for discharge, however, patient eloped before further management could be completed. Today patient returns to the ER due to complaints of flu-like symptoms stating that he probably caught something in the ER. Patient was noted to have a white cell count of 16.8. Patient has rapid tangential speech sometimes incomprehensible. Patient is a poor historian as he often takes a conversation in a different direction before answering the question being asked. Past surgical history: Denies Home medications: Suboxone, methylphenidate, Concerta, Wellbutrin, gabapentin Past Hospitalization: 1 day ago suicidal ideation Social & Personal history: Patient lives with a group facility with 6 roommates. Smokes 1 pack of cigarettes per day currently uses vape since the age of 17. Heavy alcohol use history in the distant past, however currently denies remembering the last time he had a drink. Denies using drugs. Allergies: denies Patient seen and examined at bedside. Patient is alert and oriented to time, place person and responding to all questions. General: Fatigue, chills Eyes: No Pain, No Vision change, No Conjunctivae inflammation, No Eyelid inflammation, No Other, No Redness ENT: No Ear pain, No Ear discharge, No Nose pain, congestion, rhinorrhea, No Mouth pain, No Mouth swelling, No Throat pain, No Throat swelling, No Other Cardiovascular: No Chest Pain, No Palpitations, No Orthopnea, No Paroxysmal No Dyspnea, No Edema, No Lt Headedness, No Other Respiratory: No Cough, No Dry, Shortness of breath, No SOB with exertion, No Wheezing, No Hemoptysis, No Pleuritic Pain, No Sputum, No Other Gastrointestinal: No Nausea, No Vomiting, No Abdominal Pain, No Diarrhea, No Constipation, No Melena, No Hematochezia, No Other Genitourinary: No Dysuria, No Frequency, No Incontinence, No Hematuria, No Retention, No Other Musculoskeletal: No other, No neck pain, No shoulder pain, No arm pain, No back pain, No hand pain, No leg pain, No foot pain Skin: No Rash, No Lesions, No Jaundice, No Bruising, No Other Objective vital signs Vital Sign Date Time Temp Pulse Resp B/P (MAP) Pulse Ox O2 Delivery O2 Flow Rate FiO2 09/30/24 11:21 110 20 100 09/30/24 11:16 Room Air 09/30/24 11:16 0 21 09/30/24 11:10 98.0 150/75 (100) 98.0 Total Intake and Output 09/29/24 09/29/24 09/30/24 15:00 23:00 07:00 Intake Total 500 ml Balance 500 ml medications Current Medications Medications Dose Ordered Sig/Barbara Route Start Time Stop Time Status Last Admin Dose Admin Ceftriaxone Sodium 50 ml @ 100 mls/hr DAILY@09 IV 09/30/24 09:00 09/30/24 09:04 100 MLS/HR Azithromycin 250 ml @ 125 mls/hr DAILY IV 09/30/24 10:00 09/30/24 11:41 125 MLS/HR Albuterol 2.5 mg Q6HR NEB 09/30/24 00:00 09/30/24 11:17 2.5 MG Ipratropium [place] 0.5 mg Q6HR NEB 09/30/24 00:00 09/30/24 11:17 0.5 MG Sodium Chloride 1,000 ml @ 100 mls/hr Q10H IV 09/29/24 23:00 09/30/24 08:48 100 MLS/HR Pantoprazole Sodium 40 mg DAILY@0600 PO 09/30/24 06:00 09/30/24 06:31 40 MG Examination General Appearance: Cooperative. Well developed. Well nourished. NAD Head Exam: Normal inspection Neck Exam: Normal inspection. Non-tender. Normal alignment Pulmonary/Respiratory: Chest non-tender. Clear bilateral breath sounds, no crackles, no wheezing. Cardiovascular/Chest: Regular rate and rhythm. No murmurs. No JVD. Peripheral Pulses: 2+ Radial (R). 2+ Radial (L). 2+ Pedal (R). 2+ Pedal (L) Abdominal Exam: Normal bowel sounds. Soft. normal abdomen, no visible veins, Nontender. No hepatospenomegaly. No masses Ankle Exam: Negative ankle edema Lower extremities: Negative lower extremity edema Neuro/Mental Status: A&O x4. Coherent. Thoughts/Psych: Tangential thought pattern. Good judgement and insight Skin Exam: Normal inspection. Normal color. Warm. Dry laboratory and microbiology Laboratory Tests 09/29/24 11:24 Test 09/29/24 11:24 Range/Units Serum Glucose 76 74-106 mg/dL AMARILIS COFFMAN RESIDENT Sep 30, 2024 13:32
--- NOTE | 2024-09-30 14:45 | DVHDSRES ---
Discharge Summary Date of Admission Resident Creating Document: AMARILIS COFFMAN RESIDENT Sep 29, 2024 at 22:51 Date of Discharge: Sep 30, 2024 Admitting Diagnosis Worsening cough Labs/Diagnostic Data: Laboratory Results Test 09/30/24 00:03 09/29/24 11:24 09/29/24 00:03 SARS-CoV-2 Antigen (Rapid) Negative (NEGATIVE) White Blood Count 16.8 10^3/uL (4.4-10.8) Red Blood Count 4.21 10^6/uL (4.5-5.90) Hemoglobin 11.7 g/dL (13.5-17.5) Hematocrit 35.7 % (41.0-53.0) Mean Corpuscular Volume 85.0 fL (80.0-100.0) Mean Corpuscular Hemoglobin 27.8 pg (28.0-32.0) Mean Corpuscular Hemoglobin Concent 32.7 g/dL (32.0-36.0) Red Cell Distribution Width 13.9 % (11.8-14.3) Platelet Count 399 10^3/uL (140-450) Mean Platelet Volume 6.5 fL (6.9-10.8) Neutrophils (%) (Auto) 88.6 % (37.0-80.0) Lymphocytes (%) (Auto) 4.5 % (10.0-50.0) Monocytes (%) (Auto) 6.7 % (0.0-12.0) Eosinophils (%) (Auto) 0.0 % (0.0-7.0) Basophils (%) (Auto) 0.2 % (0.0-2.0) Neutrophils # (Auto) 14.8 10 ^3/uL (1.6-8.6) Lymphocytes # (Auto) 0.8 10 ^3/uL (0.4-5.4) Monocytes # (Auto) 1.1 10 ^3/uL (0-1.3) Eosinophils # (Auto) 0 10 ^3/uL (0-0.8) Basophils # (Auto) 0 10 ^3/uL (0-0.2) Nucleated Red Blood Cells 0.0 % Sodium Level 135 mmol/L (136-145) Potassium Level 3.8 mmol/L (3.5-5.1) Chloride Level 101 mmol/L (98-107) Carbon Dioxide Level 26 mmol/L (20-31) Anion Gap 8 (5-15) Blood Urea Nitrogen 17 mg/dL (9-23) Creatinine 0.92 mg/dL (0.700-1.30) Glomerular Filtration Rate Calc 107 mL/min (>90) BUN/Creatinine Ratio 18.5 (10.0-20.0) Serum Glucose 76 mg/dL (74-106) Calcium Level 9.3 mg/dL (8.7-10.4) B-Type Natriuretic Peptide 75.98 pg/mL (0-100) Influenza Type A Antigen Negative (Negative) Influenza Type B Antigen Negative (Negative) Other Laboratory Tests 09/29/24 11:24 Brief Hx & Hospital Course: Patient is a 43-year-old male with past medical history of ADHD, hypertension who eloped from the hospital yesterday on 09/29/2024 when he came in due to suicidal ideation. Psych eval was completed for him and he was cleared for discharge, however, patient eloped before further management could be completed. Today patient returns to the ER due to complaints of flu-like symptoms stating that he probably caught something in the ER. Patient was noted to have a white cell count of 16.8. Patient has rapid tangential speech sometimes incomprehensible. Patient is a poor historian as he often takes a conversation in a different direction before answering the question being asked. Chest x-ray showed no acute disease, on physical examination patient had clear bilateral breath sounds without any wheezing or congestion. Patient was prescribed buprenorphine for 7 days and discharged home. His hospital course was uncomplicated. General Appearance: Cooperative. Well developed. Well nourished. NAD Head Exam: Normal inspection Neck Exam: Normal inspection. Non-tender. Normal alignment Pulmonary/Respiratory: Chest non-tender. Clear bilateral breath sounds, no crackles, no wheezing. Cardiovascular/Chest: Regular rate and rhythm. No murmurs. No JVD. Peripheral Pulses: 2+ Radial (R). 2+ Radial (L). 2+ Pedal (R). 2+ Pedal (L) Abdominal Exam: Normal bowel sounds. Soft. normal abdomen, no visible veins, Nontender. No hepatospenomegaly. No masses Ankle Exam: Negative ankle edema Lower extremities: Negative lower extremity edema Neuro/Mental Status: A&O x4. Coherent. Thoughts/Psych: Normal thought pattern. Appropriate mood and affect. Good judgement and insight Skin Exam: Normal inspection. Normal color. Warm. Dry Condition at Discharge: Good Final Diagnosis/Problems List URTI opoid withdrawal Discharge Disposition: Home Discharge Instruct/Medications Diet: Regular Activity: No Restrictions, As Tolerated Follow Up/Referral: f/u with [facility] within 1 week Medications: script sent to pharmacy Discharge Statement: "Patient was advised to return to the ER or call 911 if any headaches, dizziness, shortness of breath, chest pain, abdominal pain, bleeding, fevers, or worsening of medical condition. Patient was counseled about treatment plan, medications, possible side effects, patientverbalized understanding. All questions were answered to the best of my ability. This discharge took greater then 30 minutes in planning, reviewing documentation, counseling the patient, and discussing with other team members." ASSESSMENT ASSESSMENT Assessment URTI opoid withdrawal Date of Service: Sep 30, 2024 Billing Provider: SOBIA DIAZ MD Common Visit Codes: 83379-ARG/OBS DISCH DAY >30min AMARILIS COFFMAN Sep 30, 2024 14:45 SOBIA DIAZ MD Oct 01, 2024 20:34
== END 2024-09-30 17:13 | disposition home or self-care (01) | DRG 113 ==
LOC: ER 10:44 → EDBD 10:44 → OVERFLOW 22:51
PROVIDERS: ADMIT Student in an Organized Health Care Education/Training Program; ATTEND Student in an Organized Health Care Education/Training Program
DX: J02.8 Acute pharyngitis due to other specified organisms (principal); M62.82 Rhabdomyolysis; E86.0 Dehydration; F41.9 Anxiety disorder, unspecified; Z20.822 Contact with and (suspected) exposure to COVID-19; F11.23 Opioid dependence with withdrawal; F17.200 Nicotine dependence, unspecified, uncomplicated; Z59.00 Homelessness unspecified; Z79.899 Other long term (current) drug therapy
CPT/HCPCS: 36415; 71045; 80048; 82550; 83880; 85025; 87040; 87426; 87804; 94640; G0378